=== PATIENT | male | born 1945 | race Caucasian/White ===

== ENCOUNTER 2017-11-16 10:46 | Emergency (ER) | payer MEDICARE ==
[2017-11-16 11:21] VITALS: BP 126/83
--- NOTE | 2017-11-16 12:21 | UC ---
UC General HPI - HPI Summary HPI Summary: 72 year old male with general complaint. states has an enlarged prostate, and has not had blood drawn in about 5 years. States has not been feeling well x 3 weeks. Intermittent L arm pain- not at present, fatigue, upset stomach- worsens with eating. Denies any chest pain, skin warm and dry. Does not have PCP. No fever. no cough. no SOB. has had GERD / reflux a lot more and can set up in the chest area at times. no doctors in years. no meds at this time. [ End ] - History of Current Complaint Chief Complaint: UCGeneralIllness Stated Complaint: FATIGUE,STOMACH ACHE Time Seen by Provider: 11/16/17 11:55 Hx Obtained From: Patient, Family/Chemical Weigher Onset/Duration: Gradual Onset, Lasting Weeks - 3 Timing: Constant Onset Severity: Mild Current Severity: Moderate Pain Intensity: 0 - Allergy/Home Medications Allergies/Adverse Reactions: Allergies Allergy/AdvReac Type Severity Reaction Status Date / Time No Known Allergies Allergy Verified 11/16/17 11:13 Home Medications: Home Medications Bee Pollen 2 cap PO DAILY 11/16/17 [History Confirmed 11/16/17] Multivitamin [Multivitamins] 1 cap PO DAILY 11/16/17 [History Confirmed 11/16/17 ] Saw/Vit E/Sod Chelsy/Lyc/Beta/Pyg [Complete Prostate Health] 1 tab PO DAILY [History Confirmed 11/16/17] PMH/Surg Hx/FS Hx/Imm Hx Previously Healthy: Yes GI/ History: Other - bph Other GI/ History: bph - Surgical History Surgical History: Yes Surgery Procedure, Year, and Place: appy, stomach obstruction - Family History Known Family History: Positive: None, Hypertension - Social History Occupation: Employed Full-time - account administrator Lives: With Family Alcohol Use: Occasionally Substance Use Type: None Smoking Status (MU): Never Smoked Tobacco Have You Smoked in the Last Year: No - Immunization History Most Recent Influenza Vaccination: no Most Recent Tetanus Shot: 2013 Review of Systems Constitutional: Fatigue Skin: Negative Eyes: Negative ENT: Negative Respiratory: Negative Cardiovascular: Negative Gastrointestinal: Negative, Other - gerd Genitourinary: Negative Motor: Negative Neurovascular: Negative Musculoskeletal: Negative Neurological: Negative Psychological: Negative All Other Systems Reviewed And Are Negative: Yes Physical Exam Triage Information Reviewed: Yes Appearance: Well-Appearing, No Pain Distress, Well-Nourished Vital Signs: Initial Vital Signs Temp 98.8 F 11/16/17 11:14 Pulse 69 11/16/17 11:14 Resp 18 11/16/17 11:14 BP 126/83 11/16/17 11:14 Pulse Ox 97 11/16/17 11:14 Eye Exam: Normal ENT Exam: Normal Dental Exam: Normal Neck exam: Normal Neck: Positive: 1 Respiratory Exam: Normal Cardiovascular Exam: Normal Abdominal Exam: Normal Abdomen Description: Positive: Nontender, No Organomegaly, Soft, Other: - old healed scars on abodmen. Negative: CVA Tenderness (R), CVA Tenderness (L), Distended, Guarding Bowel Sounds: Positive: Present Musculoskeletal Exam: Normal Neurological Exam: Normal Psychological Exam: Normal Skin Exam: Normal Course/Dx - Course Course Of Treatment: vague generalized sx of fatigue, gerd, chest discomfort where the reflux is,no PCP or labs in years . having GERD like Sx, check basic labs and EKG and treat as reflux -- f/u with PCP. has had more straining with BM but still with his normal BM every 3 days for long time. normal PE. no red flags. needs PCP and given info for PCP to follow up - Differential Dx - Multi-Symptom Provider Diagnoses: GERD Discharge - Sign-Out/Discharge Documenting (check all that apply): Discharge/Admit/Transfer - Discharge Plan Condition: Good Disposition: HOME Prescriptions: Omeprazole CAP* [Prilosec CAP* 20 MG] 20 mg PO DAILY #30 cap Patient Education Materials: Gastroesophageal Reflux Disease (DC) Referrals: No Primary Care Phys,NOPCP [Primary Care Provider] - 4 Days - Billing Disposition and Condition Condition: GOOD Disposition: Home
[2017-11-16 18:55] LABS: ABS Basophils 0 10^3/ul (0-0.2); ABS Eosinophils 0.2 10^3/ul (0-0.6); ABS Lymphocytes 2.1 10^3/ul (1.0-4.8); ABS Monocytes 0.7 10^3/ul (0-0.8); ABS Neutrophils 4.4 10^3/ul (1.5-7.7); ABS Nucleated RBC 0 10^3/ul; Eosinophil % 2.5 % (0-6); Hematocrit 42 % (42-52); Hemoglobin 14.3 g/dl (14.0-18.0); Lymphocyte % 28.6 % (25-47); Mean Corpuscular HGB Conc 34 g/dl (31-36); Mean Corpuscular Hemoglobin 31 pg (27-31); Mean Corpuscular Volume 90 fL (80-94); Mean Platelet Volume 8.8 um3 (7.4-10.4); Nucleated Red Blood Cells % 0; Platelet Count 197 10^3/ul (150-450); Red Blood Count 4.69 10^6/ul (4.00-5.40); Red Cell Distribution Width 13 % (10.5-15); White Blood Count 7.4 10^3/ul (3.5-10.8)
[2017-11-16 19:09] LABS: EGFR Non-African American 58.8 (>60)
--- NOTE | 2017-11-17 11:51 | UC ---
- Progress Note Progress Note: RN to call pt. Recommend f/u PCP re lab review, next day. Monocytes slightly elevated, creat 1.21 (slight elev), TB 1.39 (slight elev). None listed, as such, if PCP n/a, then [facility] referral telephone to be given to pt. Discharge - Sign-Out/Discharge Documenting (check all that apply): Post-Discharge Follow Up - Discharge Plan Condition: Good Disposition: HOME Prescriptions: Omeprazole CAP* [Prilosec CAP* 20 MG] 20 mg PO DAILY #30 cap. Patient Education Materials: Gastroesophageal Reflux Disease (DC) Referrals: No Primary Care Phys,NOPCP [Primary Care Provider] - 4 Days - Billing Disposition and Condition Condition: GOOD Disposition: Home
== END 2017-11-16 13:02 | disposition home or self-care (01) ==
LOC: UCCORT 10:46
DX: K21.9 Gastro-esophageal reflux disease without esophagitis (principal)
CPT/HCPCS: 36415; 80053; 81003; 85025; 87086; 93005; 99212; G0463

== ENCOUNTER 2018-06-19 11:30 | Emergency (ER) | payer MEDICARE ==
[2018-06-19 11:58] VITALS: BP 138/79
--- NOTE | 2018-06-19 12:18 | UC ---
Complaint Male HPI - HPI Summary HPI Summary: hematuria x 7 days no dysuria, + urinary frequency , no abdominal pain + chronic back pain, no fever, no chills no hx of smoking, father had bladder cancer - History of Current Complaint Chief Complaint: UCGU Stated Complaint: URINARY Time Seen by Provider: 06/19/18 12:00 Hx Obtained From: Patient Onset/Duration: Gradual Onset, Lasting Days - 7, Still Present Timing: Constant Severity Initially: Moderate Severity Currently: Moderate Pain Intensity: 0 Location: Other - hematuria Aggravating Factor(s): Voiding Alleviating Factor(s): Nothing Associated Signs And Symptoms: Positive: Hematuria. Negative: Diaphoresis, Back Pain, Fever, Dysuria, Constipation, Blood in Stool, Rectal Pain - Allergies/Home Medications Allergies/Adverse Reactions: Allergies Allergy/AdvReac Type Severity Reaction Status Date / Time No Known Allergies Allergy Verified 11/16/17 11:13 Home Medications: Home Medications Mv-Mn/Herb 208/Beta-Sitosterol [Urinozinc Prostate Formula Tab] 100 mg PO DAILY 06/19/18 [History Confirmed 06/19/18] Vitamin B Complex CAP* [B Complex CAP*] 1 cap PO BID 06/19/18 [History Confirmed 06/19/18] PMH/Surg Hx/FS Hx/Imm Hx - Additional Past Medical History Additional PMH: BPH, GERD GI/ History: Gastroesophageal Reflux - Surgical History Surgical History: Yes Surgery Procedure, Year, and Place: appy, stomach obstruction - Family History Known Family History: Positive: None, Hypertension, Other - father had bladder cancer - Social History Alcohol Use: Occasionally Substance Use Type: None Smoking Status (MU): Never Smoked Tobacco Have You Smoked in the Last Year: No - Immunization History Most Recent Influenza Vaccination: no Most Recent Tetanus Shot: 2013 Review of Systems All Other Systems Reviewed And Are Negative: Yes Constitutional: Positive: Negative Skin: Positive: Negative Eyes: Positive: Negative ENT: Positive: Negative Respiratory: Positive: Negative Cardiovascular: Positive: Negative Genitourinary: Positive: Hematuria Motor: Positive: Negative Is Patient Immunocompromised?: No Physical Exam Triage Information Reviewed: Yes Appearance: Well-Appearing, No Pain Distress, Well-Nourished Vital Signs: Initial Vital Signs Temp 98.3 F 06/19/18 11:49 Pulse 70 06/19/18 11:49 Resp 20 06/19/18 11:49 BP 138/79 01/15/19 11:49 Pulse Ox 97 06/19/18 11:49 Vital Signs Reviewed: Yes Eye Exam: Normal Eyes: Positive: Conjunctiva Clear ENT: Positive: Normal ENT inspection, Hearing grossly normal, Pharynx normal Neck exam: Normal Neck: Positive: Supple, Nontender, No Lymphadenopathy Respiratory: Positive: Chest non-tender, Lungs clear, Normal breath sounds Cardiovascular: Positive: RRR, No Murmur, Pulses Normal Abdomen Description: Positive: Nontender, Soft. Negative: CVA Tenderness (R), CVA Tenderness (L), Distended, Guarding Bowel Sounds: Positive: Present Skin Exam: Normal Complaint Male Course/Dx - Differential Dx/Diagnosis Provider Diagnosis: Hematuria Discharge - Sign-Out/Discharge Documenting (check all that apply): Patient Departure All imaging exams completed and their final reports reviewed: No Studies - Discharge Plan Condition: Stable Disposition: HOME Prescriptions: Ciprofloxacin TAB* [Cipro 500 MG TAB*] 500 mg PO BID #14 tab Patient Education Materials: Hematuria (ED) Referrals: No Primary Care Phys,NOPCP [Primary Care Provider] - Zacarias Saldana MD [Medical Doctor] - As Soon As Possible Additional Instructions: will start treatment with antibiotics for possible UTI/ bladder infection will check urine culture urology referral - Billing Disposition and Condition Condition: STABLE Disposition: Home
== END 2018-06-19 12:16 | disposition home or self-care (01) ==
LOC: UCCORT 11:30
DX: R31.9 Hematuria, unspecified (principal); Z80.52 Family history of malignant neoplasm of bladder
CPT/HCPCS: 81003; 87086; 99212; G0463

== ENCOUNTER 2019-03-08 17:09 | Emergency (ER) | payer MEDICARE ==
[2019-03-08 17:18] VITALS: BP 117/69
--- NOTE | 2019-03-08 18:06 | UC ---
Laceration HPI - HPI Summary HPI Summary: Per cook 3 pastry: "Today 1700 pt cut top of LEFT hand on piece of stainless steel part while working on his car. +bleed and applied pressure dressing to stop bleeding. May have had tetanus shot here in 2016. Denies being on blood thinners. " - History Of Current Complaint Chief Complaint: UCLaceration Stated Complaint: LEFT HAND LACERATION Time Seen by Provider: 03/08/19 17:54 Pain Intensity: 6 - Allergies/Home Medications Allergies/Adverse Reactions: Allergies Allergy/AdvReac Type Severity Reaction Status Date / Time No Known Allergies Allergy Verified 03/08/19 17:16 PMH/Surg Hx/FS Hx/Imm Hx Previously Healthy: Yes - Surgical History Surgical History: Yes Surgery Procedure, Year, and Place: appy, stomach obstruction - Family History Known Family History: Positive: None, Hypertension, Other - father had bladder cancer - Social History Alcohol Use: Occasionally Substance Use Type: None Smoking Status (MU): Never Smoked Tobacco Have You Smoked in the Last Year: No - Immunization History Most Recent Influenza Vaccination: no Most Recent Tetanus Shot: 2013 Review of Systems All Other Systems Reviewed And Are Negative: Yes Constitutional: Positive: Negative Skin: Positive: Other - lac Eyes: Positive: Negative ENT: Positive: Negative Respiratory: Positive: Negative Cardiovascular: Positive: Negative Motor: Positive: Negative Neurovascular: Positive: Negative. Negative: Decreased Pulses Musculoskeletal: Positive: Negative. Negative: Decreased ROM Neurological: Positive: Negative, Numbness. Negative: Weakness, Paresthesia Psychological: Positive: Negative Is Patient Immunocompromised?: No Physical Exam Triage Information Reviewed: Yes Appearance: Well-Appearing, No Pain Distress, Well-Nourished Vital Signs: Initial Vital Signs Temp 98.2 F 03/08/19 17:13 Pulse 76 03/08/19 17:13 Resp 16 03/08/19 17:13 BP 117/69 03/08/19 17:13 Pulse Ox 96 03/08/19 17:13 Respiratory Exam: Normal Cardiovascular Exam: Normal Musculoskeletal Exam: Normal Musculoskeletal: Positive: Strength Intact, ROM Intact, No Edema, Other: - sensation intact to LT. CR brisk. exam rechecked after sutures adn intact. Neurological Exam: Normal Psychological Exam: Normal Skin: Positive: Other - left extensor hand with U shapeed 3 cm long lac withw ell oopposing skin. hemostasis obtained prior to repair. superficial lac. Laceration Repair - Laceration Repair 1 Description: Irregular - u shaped on left extensor hand Laceration Size After Repair: Length (cm) - 3, Width (mm) - 3, Depth (mm) Type Injection: Local Anesthesia Used: 1.0% Lido Additive Used (in ml): Epi Cleansing Completed Via Routine Prep: Yes Irrigation With Pressure Irrigation Device: Yes Closure Material: Sutures Closure Method: Single Layer Suture Of: Skin Suture Type: Nylon - 4.0, 3 sutures placed. tolerated well Laceration Course/Dx - Course/Dx Course Of Treatment: left hand lac. tolerated 3 sutures well. cover w/ bacitracin and bandage. f/u 10 d - Differential Dx - Laceration/Wound Differental Diagnoses: Laceration - Diagnosis Provider Diagnosis: Laceration of left hand without complication, excluding fingers Discharge ED - Sign-Out/Discharge Documenting (check all that apply): Patient Departure All imaging exams completed and their final reports reviewed: No Studies - Discharge Plan Condition: Stable Disposition: HOME Patient Education Materials: Laceration (ED), Stitches Removal (ED) Referrals: No Primary Care Phys,NOPCP [Primary Care Provider] - Additional Instructions: follow up here in 10 days for suture removal. Watch for any signs of infection including redness or discharge or fevers and follow up if so. We have updated your tetanus/pertussis vaccine. - Billing Disposition and Condition Condition: STABLE Disposition: Home
[2019-03-08] MEDS ORDERED: Lidocaine 1% MPF* 2 ML VIAL INJ ONE (18:17)
[2019-03-08] MEDS ORDERED: Tetan/Diph/Pertus SYR(Tdap)* 0.5 ML SYR(BOOSTRIX) use SYR contains LATEX IM ONE (18:44)
== END 2019-03-08 18:53 | disposition home or self-care (01) ==
LOC: UCCORT 17:09
DX: S61.412A Laceration without foreign body of left hand, initial encounter (principal); W26.8XXA Contact with other sharp object(s), not elsewhere classified, initial encounter; Y93.89 Activity, other specified; Y92.9 Unspecified place or not applicable; Z23 Encounter for immunization
CPT/HCPCS: 12002; 12032; 90715; 96372; 99211; 99212; G0463

== ENCOUNTER 2019-03-18 12:31 | Emergency (ER) | payer MEDICARE ==
--- OUTSIDE RECORDS SUMMARY | 2019-03-18 12:42 | XMS REPORT | Continuity of Care Document ---
:1945 External Reference #:[id number] Author Name Jose Denney PA Address [address], [address] [place] [address] Care Team Providers Name Role Phone Himanhsu France III, MD - Care Team Information Visual Effects Artist [phone] Ophthalmology Lui Richmond M.D. - Urology Care Team Information Visual Effects Artist Problems Active Problems Provider Date Suspected diabetes mellitus Trupti Villalta M.D. Onset: 08/28/2015 Screening for malignant neoplasm of prostate Trupti Villalta M.D. Onset: 08/27 Screening for malignant neoplasm of colon Trupti Villalta M.D. Onset: 2015 Encounter for other preprocedural examination Trupti Villalta M.D. Onset: Encounter for screening for nutritional Trupti Villalta M.D. Onset: 08/28/2015 disorder Cataract Trupti Villalta M.D. Onset: 08/28/2015 Retention of urine Lui Richmond M.D. Onset: 07/23/2018 Microscopic hematuria Lui Richmond M.D. Onset: 07/23/2018 Hydronephrosis Lui Richmond M.D. Onset: 07/23/2018 Benign prostatic hypertrophy with outflow Lui Richmond M.D. 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 12/25/2018 Tablets before urodynamics Immunizations CPT Code Status Date Vaccine Lot # U-Tetan Given 06/05/2013 Tetanus,Unspecified U-Tetan Given 06/05/2013 Tetanus,Unspecified Vital Signs Date Vital Result Comment 02/18/2019 8:44am BP Systolic 121 mmHg BP Diastolic 75 mmHg Body Temperature 98.0 F Heart Rate 70 /min Respiratory Rate 16 /min Height 72 inches 6'0" reported Weight 185.00 lb BMI (Body Mass Index) 25.1 kg/m2 BSA (Body Surface Area) 2.06 m2 [place] body weight in kilograms 81 kg O2 % BldC Oximetry 97 % Pain Level 0 12/25/2018 10:42am BP Systolic Sitting Right Arm 118 mmHg BP Diastolic Sitting Right Arm 75 mmHg Body Temperature 98.1 F Heart Rate 83 /min Respiratory Rate 18 /min Height 72 inches 6'0" reported Weight 183.00 lb BMI (Body Mass Index) 24.8 kg/m2 BSA (Body Surface Area) 2.05 m2 [place] body weight in kilograms 81 kg O2 % BldC Oximetry 96 % Results Test Date Facility Test Result H/L Range Note Protime 10/25/2018 [facility] Protime 14.1 seconds Normal 12.0-14.4 [address] [place], [place] [id number] [phone] Inr 1.1 Normal 0.9-1.1 2 Anticoagulant Therapy? NO Basic Metabolic Panel 10/25/2018 [facility] Glucose 97 mg/dL Normal 74-106 [address] [place], [place] [id number] [phone] BUN 18 mg/dL Normal 7-18 Creatinine 1.2 mg/dL Normal 0.6-1.3 Glom Filtration Rate, Estimate >60 mL/min >60 If >60 mL/min >60 3 BUN/Creat 15.0 ratio Sodium 140 mmol/L Normal 136-145 Potassium 3.7 mmol/L Normal 3.5-5.1 Chloride 108 mmol/L High 98-107 Carbon Dioxide 25 mmol/L Normal 21-32 Anion Gap 7 mEq/L Low 8-16 Calcium 11.4 mg/dL High 8.5-10.1 Urine Culture 09/17/2018 [facility] Urine Culture [facility] [address] [place] [address] [phone] Quantity 10,000 - 50,000 <SEE NOTE> 5 1 R33.9 2 THERAPEUTIC INR RANGE: 2.0 - 3.0 DVT, Pulmonary embolus, prophylaxis against venous thrombosis or systemic embolization in high risk patients. 2.5 - 3.5 Mechanical heart valves 3 Note: Persistent reduction for 3 months or more in an eGFR <60 mL/min/1.73 m2 defines CKD. Patients with eGFR values >/=60 mL/min/1.73 m2 may also have CKD if evidence of persistent proteinuria is present. The original MDRD equation for estimated GFR is not valid for patients less than 18 years of age. Additional information may be found at www.kdoqi.org. 4 R31.21 5 10,000 - 50,000 CFU/mL Procedures Date Code Description Status 02/18/2019 57494 Insert Of Temporary Indwelling Bladder Catheter,Simple Completed 12/25/2018 95579 Insert Of Temporary Indwelling Bladder Catheter,Simple Completed 11/27/2018 81576 Insert Of Temporary Indwelling Bladder Catheter,Simple Completed 10/25/2018 47680 voiding pressure study vp software support intra abdominal voiding pressure Completed ap 10/25/2018 04926 emg studies of urethral sphincter, other than needle, any Completed tech 10/25/2018 53588 complex uroflowmetry electronic Completed 10/25/2018 17266 Cystometrogram complex w/ voiding and urethral pressure Completed studies 09/17/2018 30836 Insert Of Temporary Indwelling Bladder Catheter,Simple Completed Medical Devices Description No Information Available Encounters Type Date Location Provider Dx Diagnosis Office Visit 02/18/2019 8:45a Urology Jose Denney, N21.0 Calculus in bladder PA R33.9 Retention of urine, unspecified N20.0 Calculus of kidney Office Visit 12/25/2018 10:30a Urology Jose Denney, R33.9 Retention of urine, PA unspecified Office Visit 11/27/2018 1:45p Urology Jose Denney, R33.9 Retention of urine, PA unspecified Office Visit 10/25/2018 9:30a Urology Jose Denney, R33.9 Retention of urine, PA unspecified R39.12 Poor urinary stream Office Visit 09/17/2018 1:30p Urology Jose Denney, R33.9 Retention of urine, PA unspecified Office Visit 09/03/2018 11:15a Urology Jose Denney, R33.9 Retention of urine, PA unspecified Office Visit 08/20/2018 12:00p Urology Jose Denney, R33.9 Retention of urine, PA unspecified Assessments Date Code Description Provider 02/18/2019 N21.0 Calculus in bladder Jose Denney, PA 02/18/2019 R33.9 Retention of urine, unspecJose Diaz, PA 02/18/2019 N20.0 Calculus of kidney Jose Denney, PA 12/25/2018 R33.9 Retention of urine, unspecified Jose Denney, PA 11/27/2018 R33.9 Retention of urine, unspecified Jose Denney, PA 10/25/2018 R33.9 Retention of urine, unspecJose Diaz, PA 10/25/2018 R39.12 Poor urinary stream Jose Denney, PA 09/17/2018 R33.9 Retention of urine, unspecified Jose Denney, PA 09/03/2018 R33.9 Retention of urine, unspecified Jose Denney, PA 08/20/2018 R33.9 Retention of urine, unspecified Jose Denney, PA Plan of Treatment Future Appointment(s):03/18/2019 2:30 pm - Lui Richmond M.D. at [id number] - Jose Denney, PAN21.0 Calculus in bladderNew Labs:Ua RFX Micro & amp; Culture II, Ordered: 02/18/19Calculi,Urinary,With Photo, Ordered: New Xrays:KUB Abdomen, Ordered: 02/18/19Comments:With removal of today's catheter came 4 mm flat smooth brown stone. Sent for analysis. The bladderwas irrigated no other stones retrieved.R33.9 Retention of urine, unspecifiedNew Labs:Ua RFX Micro & Culture II, Ordered: 02/18/19Calculi,Urinary,With Photo , Ordered: 02/18/19Comments:16 Hungarian Mukherjee catheter exchange. Bladder irrigated without a 20 cc sterile water. His can returnin [address] Richmond to discuss what definitive therapies may be best for him at this time.N20.0 Calculus of kidneyNew Xrays:KUB Abdomen, Ordered: 02/18/19Comments: He will get a KUB to see if any stones or amenable to shockwave lithotripsy review that with the doctor. Functional Status Description No Information Available Mental Status Description No Information Available Referrals Refer to Reason for Referral Status Appt Date Stevan Loyd Neurogenic/acontractile bladder Closed 01/22/2019 [facility] Urology [facility] [place] [address] [phone]
[2019-03-18 12:58] VITALS: BP 115/75
--- NOTE | 2019-03-18 13:14 | UC ---
HPI Wound/Suture Re-check - HPI Summary HPI Summary: Patient is a 74-year-old male presenting for suture removal. He had 3 stitches placed 10 days ago after cutting his hand while working on his car. Denies redness and drainage from the wound. Denies pain. Denies fever, chills, nausea , vomiting. - History Of Current Complaint Chief Complaint: UCLaceration Stated Complaint: STITCH REMOVAL Hx Obtained From: Patient Pain Intensity: 0 - Allergies/Home Medications Allergies/Adverse Reactions: Allergies Allergy/AdvReac Type Severity Reaction Status Date / Time No Known Allergies Allergy Verified 03/18/19 12:55 Home Medications: Home Medications NK [No Home Medications Reported] 03/18/19 [History Confirmed 03/18/19] PMH/Surg Hx/FS Hx/Imm Hx - Surgical History Surgical History: Yes Surgery Procedure, Year, and Place: appy, stomach obstruction - Family History Known Family History: Positive: None, Hypertension, Other - father had bladder cancer - Social History Alcohol Use: Occasionally Substance Use Type: None Smoking Status (MU): Never Smoked Tobacco Have You Smoked in the Last Year: No - Immunization History Most Recent Influenza Vaccination: no Most Recent Tetanus Shot: 2013 Review of Systems All Other Systems Reviewed And Are Negative: No Constitutional: Positive: Negative Respiratory: Positive: Negative Cardiovascular: Positive: Negative Gastrointestinal: Positive: Negative Musculoskeletal: Positive: Negative. Negative: Decreased ROM, Edema, Myalgia Neurological: Negative: Paresthesia, Numbness Physical Exam Triage Information Reviewed: Yes Appearance: Well-Appearing, No Pain Distress, Well-Nourished Vital Signs: Initial Vital Signs Temp 98.4 F 03/18/19 12:56 Pulse 66 03/18/19 12:56 Resp 15 03/18/19 12:56 BP 115/75 03/18/19 12:56 Pulse Ox 98 03/18/19 12:56 Vital Signs Reviewed: Yes Eyes: Positive: Conjunctiva Clear ENT: Positive: Hearing grossly normal Neck: Positive: Supple Respiratory: Positive: No respiratory distress Cardiovascular: Positive: Pulses Normal, Brisk Capillary Refill Musculoskeletal Exam: Normal Musculoskeletal: Positive: Strength Intact, ROM Intact, No Edema Neurological: Positive: Alert Psychological: Positive: Age Appropriate Behavior Skin: Positive: Other - Healed wound noted over the dorsal left hand. 3 stitches noted Course/Dx - Course Course Of Treatment: I removed 3 stitches from dorsal left hand of the patient. The wound appears healed. Instructed patient to return if he experiences any fever, chills, nausea, vomiting, drainage or redness of the wound. Patient voiced understanding and agreed to the treatment plan. - Diagnosis Provider Diagnosis: Visit for suture removal Discharge ED - Sign-Out/Discharge Documenting (check all that apply): Patient Departure All imaging exams completed and their final reports reviewed: No Studies - Discharge Plan Condition: Stable Disposition: HOME Patient Education Materials: Stitches Removal (ED) [facility]errals: [facility] [Outside] - If Needed Additional Instructions: You had 3 stitches removed today. Return or follow-up with the [facility] if you notice redness, drainage, or pain where your stitches were. - Billing Disposition and Condition Condition: STABLE Disposition: Home - Attestation Statements Provider Attestation: I was available for consult. This patient was seen by the JULISSA. The patient was not presented to, seen by, or examined by me. -Timur
== END 2019-03-18 13:16 | disposition home or self-care (01) ==
LOC: UCCORT 12:31
DX: S61.412D Laceration without foreign body of left hand, subsequent encounter (principal); W45.8XXD Other foreign body or object entering through skin, subsequent encounter

== ENCOUNTER 2019-07-18 10:28 | Day surgery (SDC) | payer MEDICARE ==
[~2019-07-18 10:28] MED LIST: Buffered Lidocaine 1% SYRIN* 1 ML/SYRINGE INTRADERM ONE; Famotidine IV* 10 MG/ML 2 ML (20 mg) IV ONE; Lactated Ringers 1000 ML Bag* 1,000 ML IV SCH
[2019-07-18] MEDS ORDERED: Famotidine IV* 10 MG/ML 2 ML (20 mg) ONE (11:27)
[2019-07-18] MEDS ORDERED: KETAMINE HCL* 50 MG/ML 10 ML VIAL ONE (12:07)
[2019-07-18] MEDS ORDERED: Lidocaine 2% PF * 5 ML VIAL ONE (12:07)
[2019-07-18] MEDS ORDERED: Dexamethasone IV* 4 MG/ML 1 ML (4 MG) ONE (12:07)
[2019-07-18] MEDS ORDERED: Midazolam* 1 MG/ML 5 ML VIAL (5 MG) ONE (12:07)
[2019-07-18] MEDS ORDERED: fentaNYL* 50 MCG/ML 2 ML VIAL (100 MCG VIAL) ONE ×3 (12:07→16:01)
[2019-07-18] MEDS ORDERED: Propofol* 10 MG/ML 20 ML BTL ONE (12:07)
[2019-07-18] MEDS ORDERED: Ondansetron INJ* 2 MG/ML VIAL ONE (12:07)
[2019-07-18] MEDS ORDERED: Bupivacaine 0.25% SDV PF* 10 ML VIAL INJ ONE (12:30)
[2019-07-18] MEDS ORDERED: Lidocaine 1% INJ* 10 MG/ML 30 ML SDV ONE (12:30)
[2019-07-18] MEDS ORDERED: Succinylcholine* 20 MG/ML 10 ML VIAL ONE (12:31)
[2019-07-18] MEDS ORDERED: Phenylephrine 40 MCG/ML SYRINGE ONE (13:24)
[2019-07-18] MEDS ORDERED: Phenylephrine 10 MG/ML VIAL* 1 ML VIAL ONE (13:42)
[2019-07-18] MEDS ORDERED: Ondansetron INJ* 2 MG/ML VIAL IV PRN (14:40)
[2019-07-18] MEDS ORDERED: Naloxone* 0.4 MG/ML 1 ML VIAL IV PRN (14:40)
[2019-07-18] MEDS ORDERED: fentaNYL* 50 MCG/ML 2 ML VIAL (100 MCG VIAL) IV PRN (14:40)
--- NOTE | 2019-07-18 15:30 | BRIEFOPN ---
Brief Operative/Procedure Note - Operation Details Pre-Op Diagnosis: Hyperparathyroidism Post-Op Diagnosis: Hyperparathyroidism Procedures: Parathyroidectomy with 4 gland exploration Surgeon(s)/Proceduralists: Dr. Knight. Assist: BRENTON Acevedo Anesthesia: GETA Estimated Blood Loss: <20cc Findings: As above Specimen(s)/Culture(s) Description: Parathyroid glands Complications: None
[2019-07-18] MEDS ORDERED: Acetaminophen IV 1GM/100ML * 100 ML ONE (16:46)
[2019-07-18 20:17] VITALS: BP 106/60
--- NOTE | 2019-07-19 03:13 | OP ---
CC: Dr. Jaron Abreu * DATE OF OPERATION: 07/18/19 - SDS DATE OF : [birth year] SERVICE: General Surgery. ATTENDING SURGEON: Gena Knight MD PRODUCT SALES REPRESENTATIVE: BRENTON Landaverde ANESTHESIOLOGIST: Dr. Tom Jerome. ANESTHESIA: General endotracheal anesthesia. PREP-OP DIAGNOSIS: Primary hyperparathyroidism. POST-OP DIAGNOSIS: Primary hyperparathyroidism. OPERATIVE PROCEDURE: Right upper, left upper, left lower parathyroidectomy. ESTIMATED BLOOD LOSS: Approximately 20 cc. SPECIMEN: Right upper, left upper, and left lower parathyroid glands. INDICATION FOR SURGERY: Mr. Sabillon is a very pleasant 74-year-old gentleman with a history of primary hyperparathyroidism. His calcium levels have become extremely elevated with a peak of 13.8. Therefore, he was an appropriate candidate for a parathyroidectomy. His preoperative imaging studies had identified bilateral upper parathyroid adenomas, as well as a likely left lower parathyroid adenoma. He understood that the risks of surgery included, but were not limited to bleeding, infection, injury to nearby structures such as the recurrent laryngeal nerve. He understood the alternatives and benefits as well and he wished to proceed. DESCRIPTION OF OPERATION: The patient was brought back to the operating room and placed on the operating table in the supine position. Sequential compression devices were placed in the bilateral lower extremities for DVT prophylaxis. No antibiotics were administered. General endotracheal anesthesia was induced and the electrodes to the nerve monitor were attached and then a time-out was performed prior to administering local anesthesia to the neck, which consisted of 0.25% Marcaine and 1% lidocaine mixed. After this, the neck was prepped and draped in normal sterile fashion, and then prior to beginning the surgery, a second time-out was performed verifying the patient's name, date of , and the procedure to be performed. Next, an approximately 4.5 cm incision was made in the natural crease line two fingerbreadths above the sternal notch. The skin was divided down to the subcutaneous tissue, the platysma was divided, and the inferior and superior subplatysmal flaps were then developed. The median raphe between the strap muscles was identified and divided, and then the right strap muscles were retracted laterally off the right thyroid lobe. The right thyroid lobe was then rotated anteriorly and medially out of the neck using 2 peanuts. The middle thyroid vein was identified and divided, and then the right upper parathyroid gland was identified very posterior in the tracheoesophageal groove. It was extremely enlarged as was seen on his preoperative ultrasound. It was isolated on its pedicle and then left in place while the remainder of the four-gland exploration was performed. Of note, the right recurrent laryngeal nerve was also identified, both visually and with the nerve monitor. Anterior to the recurrent laryngeal nerve and just inferior to the lower lobe of the thyroid gland, the right lower parathyroid gland was identified. It was small and perfectly normal in appearance. A clip was placed across it and a small piece was sent for biopsy, which confirmed that it was a parathyroid tissue. Therefore, attention was then turned towards the left neck. A preoperative ultrasound identified both an enlarged left upper and a slightly enlarged left lower parathyroid gland. The strap muscles were retracted laterally off the left thyroid lobe. The left thyroid lobe was then retracted medially and anteriorly out of the neck using peanuts. The middle thyroid vein was identified and divided. The strap muscles were quite attached to the lobe and had to be taken off very carefully to allow for full mobilization of the gland and identification of the parathyroid glands. The left lower parathyroid adenoma was identified very easily just inferior to the lower lobe of the thyroid gland. It was enlarged and abnormal in appearance. More posteriorly in the tracheoesophageal grove, an extremely enlarged left upper adenoma was also identified. The left recurrent laryngeal nerve was also identified with nerve monitor. After all 4 glands had been identified, the adenomas were then excised. The left upper adenoma was excised on its pedicle. The left lower parathyroid adenoma was excised and then the right upper parathyroid gland was excised. At this point, serial PTH levels were obtained-- the baseline had been obtained in the preop holding area and then a T0, T5, and T10 levels were obtained. Given that all 4 glands had been identified and 3 were enlarged and adenomatous, the decision was made to proceed with closure, given that no further exploration would be required. Therefore, hemostasis was carefully obtained in both the right and left lateral necks and Tisseel was placed. The strap muscles were reapproximated using 4-0 Vicryl sutures. The platysma was reapproximated using interrupted 4-0 Vicryl sutures. The skin was closed using a running 5-0 Prolene suture. Sterile dressing was then placed. The patient's anesthesia was reversed and he was taken to the PACU in stable condition. At the end of the case, the PTH levels returned and the baseline was 236.3. T0 was 63, T5 was 48.3, and T10 was 44.4. At the end of the case, all counts were correct and I was present during the entirety of the case. [id number]/[facility] #: [id number] MTDD
== END 2019-07-18 20:24 | disposition home or self-care (01) ==
LOC: OR 10:28
PROVIDERS: ATTEND Surgery
DX: E21.0 Primary hyperparathyroidism (principal); N40.0 Benign prostatic hyperplasia without lower urinary tract symptoms; Z87.442 Personal history of urinary calculi; N13.30 Unspecified hydronephrosis
CPT/HCPCS: 36415; 82310; 83970; 88305; 88331; C1776; J0330; J1100; J2250; J2405; J2704; J3010; J3490

== ENCOUNTER 2022-06-27 06:00 | Observation (INO) ==
[~2022-06-27 06:00] MED LIST changes: +Buffered Lidocaine 1% SYRIN 1 ml INTRADERM ONE; -Buffered Lidocaine 1% SYRIN* 1 ML/SYRINGE INTRADERM ONE; +Famotidine IV 10 MG/ML 2 ml VIAL (20 mg) IV ONE; -Famotidine IV* 10 MG/ML 2 ML (20 mg) IV ONE; -Lactated Ringers 1000 ML Bag* 1,000 ML IV SCH; +Lactated Ringers 1000 ml BAG 1,000 ML IV SCH
[2022-06-27] MEDS ORDERED: Famotidine IV 10 MG/ML 2 ml VIAL (20 mg) ONE (06:24)
[2022-06-27] MEDS ORDERED: ceFAZolin 2 GM in NS PREMIX 2 GM/100 ML BAG IVPB ONE (06:24)
[2022-06-27] MEDS ORDERED: Lidocaine 2% PF 5 ML VIAL ONE (07:10)
[2022-06-27] MEDS ORDERED: fentaNYL 100 mcg/2 ml 50 MCG/ML VIAL ONE ×2 (07:10→07:11)
[2022-06-27] MEDS ORDERED: Propofol 10 MG/ML 20 ML BTL ONE (07:10)
[2022-06-27] MEDS ORDERED: Ondansetron 4 mg VIAL 2 MG/ML 2 ml VIAL ONE (07:10)
[2022-06-27] MEDS ORDERED: Dexamethasone IV 4 MG/ML VIAL 1 ml VIAL ONE (07:10)
[2022-06-27] MEDS ORDERED: Rocuronium 50 mg VIAL 10 mg/ml 5 ml VIAL (50 mg) ONE ×2 (07:10→09:33)
[2022-06-27] MEDS ORDERED: ROPIVACAINE 5 MG/ML 30 ML BTL (0.5%) ONE (07:11)
[2022-06-27] MEDS ORDERED: Midazolam 5 mg/5 ml VIAL 1 mg/ml 5 ml VIAL (5 mg) ONE (07:11)
[2022-06-27] MEDS ORDERED: Phenylephrine 40 mcg/mL 10mL (400mcg) SYRINGE ONE (08:06)
[2022-06-27] MEDS ORDERED: Phenylephrine IV 10 MG/ML 1 ml VIAL ONE (08:14)
[2022-06-27] MEDS ORDERED: Vancomycin 1,000 MG VIAL ONE (08:28)
[2022-06-27] MEDS ORDERED: Dexmedetomidine 200 mcg/2 ml 2 ml VIAL (200 mcg) ONE (09:30)
[2022-06-27] MEDS ORDERED: Ondansetron 4 mg VIAL 2 MG/ML 2 ml VIAL IV PRN ×2 (11:26→11:37)
[2022-06-27] MEDS ORDERED: fentaNYL 100 mcg/2 ml 50 MCG/ML VIAL IV PRN (11:26)
[2022-06-27] MEDS ORDERED: Naloxone 0.4 mg VIAL 0.4 mg/ml 1 ml VIAL IV PRN (11:26)
[2022-06-27] MEDS ORDERED: Lactulose 30 ml UDC PO PRN (11:37)
[2022-06-27] MEDS ORDERED: Magnesium Hydroxide LIQ 30 ML UDC PO PRN (11:37)
[2022-06-27] MEDS ORDERED: Morphine 2 MG/ML SYRINGE IV PRN (11:37)
[2022-06-27] MEDS ORDERED: Ondansetron ODT 4 mg TAB 4 MG TAB PO PRN (11:37)
[2022-06-27] MEDS: Lactated Ringers 1000 ml BAG 1,000 ML IV SCH ×2 (13:45→23:55)
[2022-06-27] MEDS: ceFAZolin 1 GM ADVAN 1 GM in NS 0.9% 50 ML 50 ML IVPB SCH ×2 (15:35→23:53)
[2022-06-27] MEDS: Magnesium Hydroxide LIQ 30 ML UDC PO SCH (19:57)
[2022-06-28 05:26] LABS: Hematocrit 39 % (42-52); Mean Platelet Volume 8.3 fL (7.4-10.4); Platelet Count 152 10^3/uL (150-450)
[2022-06-28 06:08] LABS: Calcium 7.9 mg/dL (8.6-10.3); Creatinine, Serum 1.4 mg/dL (0.67-1.17); Potassium 4.3 mmol/L (3.5-5.0); eGFR CKD-EPI 51.4 (>60)
[2022-06-28] MEDS: ceFAZolin 1 GM ADVAN 1 GM in NS 0.9% 50 ML 50 ML IVPB SCH (08:40)
[2022-06-28] MEDS: Magnesium Hydroxide LIQ 30 ML UDC PO SCH (08:45)
[2022-06-28] MEDS ORDERED: Vitamin THERAPEUTIC TAB PO SCH (09:00)
[2022-06-28 11:38] VITALS: BP 125/77
== END 2022-06-28 14:15 | disposition home or self-care (01) ==
LOC: AA 06:00 → INTOOBSV 06:00 → SSU 11:37
PROVIDERS: ADMIT Orthopaedic Surgery; ATTEND Orthopaedic Surgery